=== PATIENT | female | born 1970 | race Caucasian/White ===

== ENCOUNTER 2018-08-29 01:13 | Emergency (ER) | payer OTHER ==
--- NOTE | 2018-08-29 01:12 | EDPHY ---
H & P Stated Complaint: LEFT SIDE CRAMPING PAIN 3 DAYS Time Seen by Provider: 08/29/18 01:46 [facility] HPI/ROS: HPI CHIEF COMPLAINT: Left-sided musculoskeletal back pain. No trauma. HISTORY OF PRESENT ILLNESS: This is a very pleasant 48-year-old female, she has a history of thyroid disease, recent large amount of weight gain, obesity, presents emergency room with 2-3 days of left-sided posterior back pain. Is focally tender in 1 area. It is worse when she moves her left arm. She denies any pleuritic pain or pain in her chest. She does states she has some shortness of breath. No hemoptysis no pleuritic pain. Additionally the patient reports the when she moves her left arm or you press in this focal area gives her exquisite pain. She is unsure of any injury. Of note upon arrival to the emergency room I did examine her left posterior back and she is questionably tender in 1 focal area she feels like it is a muscle injury. Past Medical History: Denies medical history except for thyroid disease, recent weight gain. Past Surgical History: No recent surgery Social History: Denies drugs alcohol tobacco. Family History: Noncontributory ROS REVIEW OF SYSTEMS: 10 Systems were reviewed and negative with the exception of the elements mentioned in the history of present illness. Exam Constitutional nontoxic no acute distress, triage nursing summary reviewed, vital signs reviewed, awake/alert. Eyes normal conjunctivae and sclera, EOMI, PERRLA. HENT normal inspection, atraumatic, moist mucus membranes, no epistaxis, neck supple/ no meningismus, no raccoon eyes. Respiratory clear to auscultation bilaterally, normal breath sounds, no respiratory distress, no wheezing. Cardiovascular l left lateral posterior back exquisite tenderness in 1 focal area, I can't palpate a area possible muscle spasm, is inferior to her left scapula, rate normal, regular rhythm, no murmur, no edema, distal pulses normal. Gastrointestinal soft, non-tender, no rebound, no guarding, normal bowel sounds, no distension, no pulsatile mass. Genitourinary no CVA tenderness. Musculoskeletal no midline vertebral tenderness, full range of motion, no calf swelling, no tenderness of extremities, no meningismus, good pulses, neurovascularly intact. Skin pink, warm, & dry, no rash, skin atraumatic. Neurologic awake, alert and oriented x 3, AAOx3, moves all 4 extremities equally, motor intact, sensory intact, CN II-XII intact, normal cerebellar, normal vision, normal speech. Psychiatric normal mood/affect. Heme/Lymph/Immune no lymphadenopathy. Differential Diagnosis: Includes but is not limited to in a particular order muscle spasm, musculoskeletal strain, rib fracture, tumor, mass, pneumothorax, pneumonia, PE Medical Decision Making: Plan for this patient IV establishment, blood work, EKG, troponin, chest x-ray, CT angiogram chest, IV Dilaudid for pain control and re-evaluate. Re-evaluation: EKG interpretation by me on record in [employer] system. Impression time of EKG 2:33 a.m., sinus rhythm rate of 94, no signs of acute ischemia. CT angiogram chest: Shows no evidence of PE. Additionally there is no evidence of posterior left back mass or rib fractures or soft tissue mass. Called to me by Dr. De Oliveira. Blood work reviewed. Re-evaluation 3:49 a.m. Patient resting comfortably. Pain is improved after IV Dilaudid however not completely gone. She has pain to her left back inferior scapula. Focally tender 1 area. Appears to be muscle spasm. CT scan did not reveal mass. She received IV Dilaudid 1 mg which improved her pain. Re-evaluation she received Toradol IV, as well as some Valium for muscle spasm re-evaluate. 0543: I re-evaluated the patient she is resting comfortably feels much better. Patient has no chest pain or shortness of breath no pleuritic pain. The pain is located left posterior back inferior scapula. Is musculoskeletal nature. Reproducible on exam her pain is much improved after IV Dilaudid IV Toradol and IV fluids. CT angiogram of the chest shows no evidence of mass. I do recommend she follows up with primary care doctor. Additionally recommend she follows up with Orthopedics for possible MRI of her shoulder and slightly below. She may have had a muscle tear. No arm weakness on exam. Return precautions discussed. Source: Patient - Personal History LMP (Females 10-55): 22-28 Days Ago Current Tetanus/Diphtheria Vaccine: Yes Current Tetanus Diphtheria and Acellular Pertussis (TDAP): Yes - Medical/Surgical History Hx Asthma: No Hx Chronic Respiratory Disease: No Hx Diabetes: No Hx Cardiac Disease: No Hx Renal Disease: No Hx Cirrhosis: No Hx Alcoholism: No Hx HIV/AIDS: No Hx Splenectomy or Spleen Trauma: No Other PMH: HYPOTHYROID, DEPRESSION, GERD. - Social History Smoking Status: Never smoked Constitutional: Initial Vital Signs Temperature (C) 36.7 C 08/29/18 01:48 MDT Heart Rate 108 H 08/29/18 01:48 MDT Respiratory Rate 18 08/29/18 01:48 MDT Blood Pressure 167/123 H 08/29/18 01:48 MDT O2 Sat (%) 97 08/29/18 01:48 MDT O2 Delivery Mode Room Air O2 (L/minute) 2 Allergies/Adverse Reactions: penicillin G Allergy (Verified 08/29/18 01:51 MDT) Home Medications: Medication Instructions Recorded Hydrochlorothiazide [HCTZ (*)] 25 mg PO DAILY 08/29/18 Hydrocodone/APAP 5/325 [[place] 1 - 2 tab PO Q4H PRN #10 tab 08/29/18 5/325] Ibuprofen [Motrin (*)] 800 mg PO Q6-8PRN #10 tab 08/29/18 Levothyroxine Sodium 50 mcg PO 08/29/18 Medical Decision Making - Data Points Laboratory Results: Laboratory Results 08/29/18 01:08 [facility] 08/29/18 01:08 [facility] 08/29/18 08/29/18 08/29/18 02:50 01:31 [facility] 01:08 [facility] WBC RBC Hgb Hct MCV MCH MCHC RDW Plt Count MPV Neut % (Auto) Lymph % (Auto) [place] % (Auto) Eos % (Auto) Baso % (Auto) Nucleat RBC Rel Count Absolute Neuts (auto) Absolute Lymphs (auto) Absolute Monos (auto) Absolute Eos (auto) Absolute Basos (auto) Absolute Nucleated RBC Immature Gran % Immature Gran # Sodium Potassium Chloride Carbon Dioxide Anion Gap BUN Creatinine Estimated GFR Glucose Calcium Magnesium Total Bilirubin Conjugated Bilirubin Unconjugated Bilirubin AST ALT Alkaline Phosphatase POC Troponin I 0.00 ng/mL ng/mL (0.00-0.08) Total Protein Albumin Lipase TSH Beta HCG, Qual NEGATIVE Urine Color YELLOW Urine Appearance CLEAR Urine pH 7.0 (5.0-7.5) Ur Specific [place] > 1.035 H (1.002-1.030) Urine Protein NEGATIVE (NEGATIVE) Urine Ketones NEGATIVE (NEGATIVE) Urine Blood NEGATIVE (NEGATIVE) Urine Nitrate NEGATIVE (NEGATIVE) Urine Bilirubin NEGATIVE (NEGATIVE) Urine Urobilinogen NEGATIVE EU EU (0.2-1.0) Ur Leukocyte Esterase NEGATIVE (NEGATIVE) Urine Glucose NEGATIVE (NEGATIVE) 08/29/18 08/29/18 01:08 MST 01:08 MST WBC 9.50 10^3/uL 10^3/uL (3.80-9.50) RBC 4.35 10^6/uL 10^6/uL (4.18-5.33) Hgb 13.8 g/dL g/dL (12.6-16.3) Hct 40.5 % % (38.0-47.0) MCV 93.1 fL fL (81.5-99.8) MCH 31.7 pg pg (27.9-34.1) MCHC 34.1 g/dL g/dL (32.4-36.7) RDW 12.7 % % (11.5-15.2) Plt Count 318 10^3/uL 10^3/uL (150-400) MPV 9.7 fL fL (8.7-11.7) Neut % (Auto) 55.8 % % (39.3-74.2) Lymph % (Auto) 32.6 % % (15.0-45.0) [place] % (Auto) 7.2 % % (4.5-13.0) Eos % (Auto) 3.5 % % (0.6-7.6) Baso % (Auto) 0.6 % % (0.3-1.7) Nucleat RBC Rel Count 0.0 % % (0.0-0.2) Absolute Neuts (auto) 5.30 10^3/uL 10^3/uL (1.70-6.50) Absolute Lymphs (auto) 3.10 10^3/uL H 10^3/uL (1.00-3.00) Absolute Monos (auto) 0.68 10^3/uL 10^3/uL (0.30-0.80) Absolute Eos (auto) 0.33 10^3/uL 10^3/uL (0.03-0.40) Absolute Basos (auto) 0.06 10^3/uL 10^3/uL (0.02-0.10) Absolute Nucleated RBC 0.00 10^3/uL 10^3/uL (0-0.01) Immature Gran % 0.3 % % (0.0-1.1) Immature Gran # 0.03 10^3/uL 10^3/uL (0.00-0.10) Sodium 139 mEq/L mEq/L (135-145) Potassium 4.2 mEq/L mEq/L (3.3-5.0) Chloride 101 mEq/L mEq/L (97-110) Carbon Dioxide 26 mEq/l mEq/l (22-31) Anion Gap 12 mEq/L mEq/L (6-14) BUN 19 mg/dL mg/dL (7-23) Creatinine 0.7 mg/dL mg/dL (0.6-1.0) Estimated GFR > 60 Glucose 128 mg/dL H mg/dL (70-100) Calcium 9.9 mg/dL mg/dL (8.5-10.4) Magnesium 1.9 mg/dL mg/dL (1.6-2.3) Total Bilirubin 0.3 mg/dL mg/dL (0.1-1.4) Conjugated Bilirubin 0.2 mg/dL mg/dL (0.0-0.5) Unconjugated Bilirubin 0.1 mg/dL mg/dL (0.0-1.1) AST 78 IU/L H IU/L (14-46) ALT 114 IU/L H IU/L (9-52) Alkaline Phosphatase 136 IU/L H IU/L (38-126) POC Troponin I Total Protein 7.7 g/dL g/dL (6.3-8.2) Albumin 4.1 g/dL g/dL (3.5-5.0) Lipase 79 IU/L IU/L (23-300) TSH 3.930 uIU/mL uIU/mL (0.465-4.680) Beta HCG, Qual Urine Color Urine Appearance Urine pH Ur Specific [place] Urine Protein Urine Ketones Urine Blood Urine Nitrate Urine Bilirubin Urine Urobilinogen Ur Leukocyte Esterase Urine Glucose Medications Given: Discontinued Medications Diazepam (Valium) 2.5 mg IVP EDNOW ONE Stop: 08/29/18 03:40 Last Admin: 08/29/18 03:50 Dose: 2.5 mg Hydromorphone HCl (Dilaudid) 1 mg IVP EDNOW ONE Stop: 08/29/18 01:20 MST Last Admin: 08/29/18 01:21 MST Dose: 1 mg Sodium Chloride (Ns) 1,000 mls @ 0 mls/hr IV EDNOW ONE; Wide Open PRN Reason: Protocol Stop: 08/29/18 01:18 MST Last Admin: 08/29/18 01:21 MST Dose: 1,000 mls Ketorolac Tromethamine (Toradol) 30 mg IVP EDNOW ONE Stop: 08/29/18 03:40 Last Admin: 08/29/18 03:50 Dose: 30 mg Point of Care Test Results: Chemistry 08/29/18 01:31 MST POC Troponin I 0.00 ng/mL ng/mL (0.00-0.08) Departure - Departure Disposition: Home, Routine, Self-Care Clinical Impression: Muscle spasm Back pain Qualifiers: Back pain location: thoracic back pain Chronicity: acute Back pain laterality: left Qualified Code(s): M54.6 - Pain in thoracic spine Condition: Good Instructions: Muscle Spasm (ED), Back Pain (ED) Additional Instructions: 1. Recommend warm compresses 2. Anti-inflammatory pain medicine 3. [place] for severe pain 4. Follow up with primary care doctor 5. Additionally her liver enzymes were slightly elevated please follow up with primary care doctor about this. Referrals: Patient,NotPresent [Unknown] - As per Instructions Prescriptions: Hydrocodone/APAP 5/325 [[place] 5/325] 1 - 2 tab PO Q4H PRN #10 tab PRN Reason: Pain, Moderate Ibuprofen [Motrin (*)] 800 mg PO Q6-8PRN #10 tab
[2018-08-29] MEDS ORDERED: NS 1,000 ML IV ONE (01:17)
[2018-08-29] MEDS ORDERED: HYDROmorphONE/DILAUDID 1 MG/ML INJ ONE (01:19)
[2018-08-29] MEDS ORDERED: HYDROmorphONE/DILAUDID 2 MG/ML INJ IVP ONE ×2 (01:19→05:42)
[2018-08-29 01:22] LABS: PLATELET COUNT 318 10^3/uL (150-400)
[2018-08-29] MEDS ORDERED: IOPAMIDOL (ISOVUE 370) 100 ML BTL IV ONE (01:25)
[2018-08-29] MEDS ORDERED: DIAZEPAM 5 MG/ML 1 ML SYR IVP ONE (03:39)
[2018-08-29] MEDS ORDERED: KETOROLAC 30 MG/1 ML SDV IVP ONE (03:39)
[2018-08-29] MEDS ORDERED: HYDROCOD/APAP 5/325 PREPACK#6 BTL TAKEHOME ONE (06:09)
[2018-08-29 06:29] VITALS: BP 138/74
--- NOTE | 2018-08-31 05:48 | CPEKG ---
Test Reason : OPEN Blood Pressure : / mmHG Vent. Rate : 094 BPM Atrial Rate : 094 BPM P-R Int : 146 ms QRS Dur : 084 ms QT Int : 353 ms P-R-T Axes : 062 031 031 degrees QTc Int : 442 ms Sinus rhythm Left atrial enlargement Low voltage, precordial leads Confirmed by Sandip Sharma ([id number]) on 08/31/2018 5:47:37 AM Referred By: Confirmed By:Sandip Sharma
== END 2018-08-29 06:29 | disposition home or self-care (01) ==
DX: M62.830 Muscle spasm of back (principal)
CPT/HCPCS: 84484-PO; 96374; J1170; J1885; J3360; Q9967

== ENCOUNTER 2019-02-21 15:36 | Inpatient (IN) | payer BC ==
[2019-02-21] MEDS ORDERED: OLANZapine 5 MG TAB PO ONE (16:18)
--- NOTE | 2019-02-21 16:29 | EDPHY ---
H & P Stated Complaint: psych eval Time Seen by Provider: 02/21/19 16:13 HPI/ROS: CHIEF COMPLAINT: Brought in by for psychiatric evaluation HISTORY OF PRESENT ILLNESS: The patient is brought in by her for psychiatric evaluation. The patient reportedly has been having paranoid delusional behavior increasing over the past several weeks. The patient herself is quite preoccupied with the fact that her is trying to cause her harm. She in turn is stating that he is the 1 who has mental health problems. The patient herself is tangential and disorganized. She had been under the care of a psychiatrist in the past remotely had been on Risperdal. She denies any history of depression or psychiatric diagnosis. She denies any suicidal homicidal ideation. She denies any drug abuse. The patient's states that she has been calming increasingly paranoid and delusional over the past month. The patient is currently unemployed. He reports that he is sleeping with his door locked at night because he is concerned about his 's erratic behavior. He reports that she had been on psychiatric medications which she discontinued in July. She does have a history of paranoid delusions in the past. REVIEW OF SYSTEMS: A comprehensive 10 point review of systems is otherwise negative aside from elements mentioned in the history of present illness. Source: Patient, Family Exam Limitations: No limitations - Personal History LMP (Females 10-55): 15-21 Days Ago Current Tetanus Diphtheria and Acellular Pertussis (TDAP): Unsure - Medical/Surgical History Hx Asthma: No Hx Chronic Respiratory Disease: No Hx Diabetes: No Hx Cardiac Disease: No Hx Renal Disease: No Hx Cirrhosis: No Hx Alcoholism: No Hx HIV/AIDS: No Hx Splenectomy or Spleen Trauma: No Other PMH: HYPOTHYROID, DEPRESSION, GERD. - Social History Smoking Status: Never smoked - Physical Exam Exam: General Appearance: Alert, no distress Eyes: Pupils equal and round no pallor or injection ENT, Mouth: Mucous membranes moist Respiratory: There are no retractions, lungs are clear to auscultation Cardiovascular: Regular rate and rhythm Gastrointestinal: Abdomen is soft and nontender, no masses, bowel sounds normal Neurological: A&O, normal motor function, normal sensory exam, normal cranial nerves Skin: Warm and dry, no rashes Musculoskeletal: Neck is supple nontender Extremities: symmetrical, full range of motion Psychiatric: Tangential, paranoid, delusional, cooperative, denies suicidal or homicidal ideation. Does endorse symptoms of persecution. Constitutional: Initial Vital Signs Temperature (C) 36.4 C 02/21/19 15:52 Heart Rate 122 H 02/21/19 15:52 Respiratory Rate 18 02/21/19 15:52 Blood Pressure 195/129 H 02/21/19 15:52 O2 Sat (%) 97 02/21/19 15:52 O2 Delivery Mode Room Air Allergies/Adverse Reactions: penicillin G Allergy (Verified 08/29/18 01:51 MDT) Home Medications: Medication Instructions Recorded Hydrochlorothiazide 0 mg PO DAILY 02/21/19 [Hydrochlorothiazide] Omeprazole 20 mg PO DAILY PRN 02/21/19 Medical Decision Making ED Course/Re-evaluation: The patient presents to the ED with increasing paranoid delusions in the setting of being off a psychiatric medications since July of last year. The patient has no signs of trauma. I find no abnormalities to her neurologic examination aside from her psychiatric disposition. Screening psychiatric laboratory studies have been sent. The patient has been placed on a [facility] detainer. The patient did consent to take 10 mg of Zyprexa orally. The patient was seen and evaluated by Mental Health. She has been placed on a 72 hr hold for grave disability. The case was discussed with Dr. Mike Fernandez who was agreed to admit the patient to the inpatient unit here at [facility]. I have filled out the EMTALA transfer form at 8:00 p.m. Differential Diagnosis: Differential diagnosis considered includes psychosis, depression, bipolar mood disorder - Data Points Laboratory Results: Laboratory Results 02/21/19 16:54 02/21/19 16:54 02/21/19 02/21/19 02/21/19 17:20 16:54 16:54 WBC RBC Hgb Hct MCV MCH MCHC RDW Plt Count MPV Neut % (Auto) Lymph % (Auto) [place] % (Auto) Eos % (Auto) Baso % (Auto) Nucleat RBC Rel Count Absolute Neuts (auto) Absolute Lymphs (auto) Absolute Monos (auto) Absolute Eos (auto) Absolute Basos (auto) Absolute Nucleated RBC Immature Gran % Immature Gran # Sodium 138 mEq/L mEq/L (135-145) Potassium 3.9 mEq/L mEq/L (3.5-5.2) Chloride 103 mEq/L mEq/L (97-110) Carbon Dioxide 23 mEq/l mEq/l (22-31) Anion Gap 12 mEq/L mEq/L (6-14) BUN 15 mg/dL mg/dL (7-23) Creatinine 0.7 mg/dL mg/dL (0.6-1.0) Estimated GFR > 60 Glucose 95 mg/dL mg/dL (70-100) Calcium 10.0 mg/dL mg/dL (8.5-10.4) TSH 4.160 uIU/mL uIU/mL (0.465-4.680) Beta HCG, Qual NEGATIVE Urine Opiates Screen NEGATIVE (NEGATIVE) Urine Barbiturates NEGATIVE (NEGATIVE) Ur Phencyclidine Scrn NEGATIVE (NEGATIVE) Ur Amphetamine Screen NEGATIVE (NEGATIVE) U Benzodiazepines Scrn NEGATIVE (NEGATIVE) Urine Cocaine Screen NEGATIVE (NEGATIVE) U Marijuana (THC) Screen NEGATIVE (NEGATIVE) Ethyl Alcohol < 10 mg/dL mg/dL (0-10) 02/21/19 16:54 WBC 10.61 10^3/uL H 10^3/uL (3.80-9.50) RBC 4.64 10^6/uL 10^6/uL (4.18-5.33) Hgb 14.4 g/dL g/dL (12.6-16.3) Hct 43.2 % % (38.0-47.0) MCV 93.1 fL fL (81.5-99.8) MCH 31.0 pg pg (27.9-34.1) MCHC 33.3 g/dL g/dL (32.4-36.7) RDW 13.2 % % (11.5-15.2) Plt Count 322 10^3/uL 10^3/uL (150-400) MPV 9.4 fL fL (8.7-11.7) Neut % (Auto) 73.5 % % (39.3-74.2) Lymph % (Auto) 17.2 % % (15.0-45.0) [place] % (Auto) 6.8 % % (4.5-13.0) Eos % (Auto) 1.4 % % (0.6-7.6) Baso % (Auto) 0.7 % % (0.3-1.7) Nucleat RBC Rel Count 0.0 % % (0.0-0.2) Absolute Neuts (auto) 7.80 10^3/uL H 10^3/uL (1.70-6.50) Absolute Lymphs (auto) 1.83 10^3/uL 10^3/uL (1.00-3.00) Absolute Monos (auto) 0.72 10^3/uL 10^3/uL (0.30-0.80) Absolute Eos (auto) 0.15 10^3/uL 10^3/uL (0.03-0.40) Absolute Basos (auto) 0.07 10^3/uL 10^3/uL (0.02-0.10) Absolute Nucleated RBC 0.00 10^3/uL 10^3/uL (0-0.01) Immature Gran % 0.4 % % (0.0-1.1) Immature Gran # 0.04 10^3/uL 10^3/uL (0.00-0.10) Sodium Potassium Chloride Carbon Dioxide Anion Gap BUN Creatinine Estimated GFR Glucose Calcium TSH Beta HCG, Qual Urine Opiates Screen Urine Barbiturates Ur Phencyclidine Scrn Ur Amphetamine Screen U Benzodiazepines Scrn Urine Cocaine Screen U Marijuana (THC) Screen Ethyl Alcohol Medications Given: Discontinued Medications Olanzapine (Olanzapine) 5 mg PO ONCE ONE Stop: 02/21/19 16:19 Last Admin: 02/21/19 16:46 Dose: Not Given Departure - Departure Disposition: [facility] IP Clinical Impression: Psychosis Qualifiers: Psychosis type: delusional disorder Qualified Code(s): F22 - Delusional disorders Condition: Fair Referrals: ROSALINDA VELASQUEZ [Primary Care Provider] - As per Instructions
[2019-02-21 17:08] LABS: PLATELET COUNT 322 10^3/uL (150-400)
--- NOTE | 2019-02-21 20:47 | ASMTTLCEVL ---
TLC Evaluation - Basic Information Evaluation Start Date and 02/21/2019 05:15 PM Time Hospital Status Answers: M1 Hold 72-hr M1 Hold Start Date 02/21/2019 07:01 PM and Time Patient statement Notes: " My brought me here." Narrative Notes: Pt is a 49 year old female who was brought to [facility] by her at the recomendation of her psychiatrist Dr. Akin Brown. Pt has had increased paranoid behavior. Per pt's , pt believes her house is under surveillance and that she is being followed. 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 Pt believes her has ordered the government to put surveillance on her.Pt recently went on a trip tp [place] to visit a friend and while she was there, she believed her hotel room was bugged and believed she uncovered a sex trafficking ring. More recently, pt has been posting bizarre things on facebook that made her friends concerned. Pt has been posting stuff about children killing parents. These postings prompted her mother to contact police who showed up at their house last week. HOC stated pt sits on the couch for "24 hours." Pt states she believes her brought her to the hospital because she has asked him to go to therapy and stated, " His behaviors are creepy." Pt did talk about her vacation to [place] and stated, " " I stayed at this twisted, creepy hotel, the [facility]. It had peep holes. I went out for a few hours and when I came back, people had gone through my stuff, my face book went crazy." Pt appeared tangential, grandiose with rambling speech. Pt was vague about her symptoms. Pt denied SI/AH/VH. Diagnosis History Notes: Pt stated she was diagnosed with a "nervous breakdown." Prior suicide attempts Notes: Pt denied any SA. Prior hospitalizations Notes: Pt stated she was hospitalized 10 years ago and stated, " Yes right here in [place]. I had a anziety. My sister called the ambulance. Whenever I had anxiety, she would call the ambulance but she from drugs." Treatment Responses Notes: Unknown History of violence Notes: Pt denied any HI of violence. Per pt, he has been locking his door at night because he is afraid. HOC states pt has never threatned him but has become more irritable and he just doesn't feel comfortable. Therapist: None Psychiatrist: Akin Brown MD Medications (name, dosage, route, freq uency) Notes: Pt states she has been off her medications since July. Pt did not say what her medications were. Allergies/Reaction Notes: Penicllin Sleep Notes: Wnl Appetite Notes: Pt reports she has gained weight. Medical/Surgical history Notes: Pt has a hx of hypertension and per HOC, she is supposed to be taking medication for her thyroid. Substance use history (frequency, intensity, his tory, duration) Notes: Pt denied any drug use and stated she has approx 2 drinks a week. Pt 's utox was negative for all substances and bal was, .0 Family composition Notes: Pt stated her mother lives in [place] and that they don't get along very well and she stated, " I talk to her bu she is an alcoholic but she called the library information technician and they were at my house last week and I told them the same thing, that I was in [place]." Need for family Answers: No participation in patient's care Family psychiatric/substance abuse history Notes: Pt's mother is an alcoholic and her sister was addicted to prescription pills and alcohol. Pt has a half sister who has bipolar disorder. Developmental history Notes: Pt did not provide a lot of information about her childhood and stated, " When I had a nervous break down, my brain shut down and couldn't handle stuff." Pt did deny any childhood concussions. Abuse concerns Answers: None Marital status/children Notes: Pt has been for 2.5 years.No children. Living situation Notes: Pt lives in [place] with her . Sexual history/orientation Notes: Pt identifies as heterosexual. Peer support/family strengths Notes: Pt stated she has a good group of friends. Education level/history Notes: Pt stated she has a MA degree in medical anthropology. Work history Notes: Pt stated, " I worked at several job that were not safe. I worked with people that were dangerous." Pt stated she worked at the [place] [employer]. Pt stated she believed the people were dangerous because one of the guys she worked with told her he wore, " bullet proof vests and spoke about food." Pt stated she is currently looking for a job. Notes: None Legal Notes: Pt denied any legal problems. Yazidism/Spiritual Notes: Noen that would intefere with tx. Leisure Notes: None Collateral Notes: Pt enjoys skiing, reading and walking. Patient's strengths Answers: Intelligent (Please select at least TWO strengths): Supportive Family [facility] Evaluation - Mental Status Exam Appearance: Answers: Clean Eye Contact: Answers: Absent Mood: Answers: Elevated Affect: Answers: Suspicious Behavior: Answers: Cooperative Talkative Speech: Answers: Relevant Irrelevant Pressured Rambling Thought Process: Answers: Paranoid Tangential Insight: Answers: Poor Judgement: Answers: Fair Manic Signs/Symptoms Answers: Grandiosity Hallucinations: Answers: None Delusions: Answers: Paranoid Ideation Persecution Pt reported to have Answers: No suicidal/self-injuring ideation/behavior? Pt reported to be making Answers: No suicidal/self-injuring threats? Pt reported to have Answers: No aggression/assault ideation/behavior? Pt reported to be making Answers: No aggression/assault threats? Pt exhibits inability to Answers: Yes care for self/grave disability? Ideation/behavior is Answers: No chronic? Patient has a specific Answers: No plan? Pt has access to means to Answers: No execute the plan? Ideation involves Answers: No serious/lethal intent? History of Answers: No suicidal/self-injuring ideation, behavior, or threats? History of Answers: No aggressive/assaultive ideation, behavior, or threats? History of serious Answers: No physical harm to self/others while in treatment setting? [facility] Evaluation - Suicide/Homicide Risk Suicide Risk Factors: Answers: None Homicide/violence risk Answers: Paranoid Ideation factors: Current Suicidal Answers: No Ideation? Current Suicidal Ideation Answers: No in the Past 48 Hours? Current Suicidal Ideation Answers: No in the Past Month? Suicide Internal Answers: Trever with Stress Protective Factors: Suicide External Answers: Social Support Protective Factors: Ranking of patient's Answers: Low suicidal risk: Ranking of patient's Answers: Low homicidal risk: [facility] Evaluation - Wrap-up BDI Total Score: Unable BSS Total Score: Unable AXIS I Diagnosis (include DSM-V and ICD-10 codes), must also be entered in [employer] which is the source of truth. Notes: Unspecified Schizophrenia Spectrum and Other Psychotic Disorder 298.9 (F29) In consultation with [facility] ED physician, Austin Galan MD and on-call psychiatrist, Mike Fernandez MD, both concurred that pt appears to meet 27-65 criteria requiring psychiatric hospitalization as pt appears to be at risk of harm to gravely disabled due to a mental illness condition. Pt declined to have this aligner typewriter read her the Patient Rights and Responsibilities Statement. On 02/21/19 at 19:30. The original placed on chart, and pt was given photocopy of Rights. Pt signed the Patient Rights. Pt was given the 3N prohibited belongings list while in the ED. Date Signed: 02/21/2019 08:46 PM Electronically Signed By:Cheyenne Streeter
--- NOTE | 2019-02-21 20:48 | ASMTTCLDSP ---
TLC Discharge Disposition Disposition: Answers: Admit Disposition Notes: Notes: In consultation with [facility] ED physician, Austin Galan MD and on-call psychiatrist, Mike Fernandez MD, both concurred that pt appears to meet 27-65 criteria requiring psychiatric hospitalization as pt appears to be at risk of harm to gravely disabled due to a mental illness condition. Pt declined to have this writer producer read her the Patient Rights and Responsibilities Statement. On 02/21/19 at 19:30. The original placed on chart, and pt was given photocopy of Rights. Pt signed the Patient Rights. Pt was given the 3N prohibited belongings list while in the ED. For inpatient Mike Fernandez MD admission, the following psychiatrist agreed to accept patient for admission to Behavioral [facility] ([facility]): Date Signed: 02/21/2019 08:48 PM Electronically Signed By:Cheyenne Streeter
[2019-02-21] MEDS ORDERED: OLANZapine DISINTEGR 5 MG TAB PO PRN (20:52)
[2019-02-21] MEDS ORDERED: ACETAMINOPHEN 325 MG TAB PO PRN (20:52)
[2019-02-21] MEDS ORDERED: MAGNESIUM HYDROXIDE 30 ML UDCUP PO PRN (20:52)
[2019-02-21] MEDS ORDERED: LORazepam 0.5 MG TAB PO PRN (20:52)
[2019-02-21] MEDS ORDERED: MAG HYDROX/AL HYDROX/SIMETH 30 ML UDCUP PO PRN (20:52)
[2019-02-21] MEDS ORDERED: NICOTINE POLACRILEX 2 MG GUM B PRN (20:52)
[2019-02-21] MEDS ORDERED: PANTOPRAZOLE SODIUM 40 MG TAB PO PRN (21:00)
[2019-02-22] MEDS: HYDROCHLOROTHIAZIDE 25 MG TAB PO SCH (08:37)
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
--- NOTE | 2019-02-22 09:46 | PDMN ---
Medical Necessity Medical necessity: Pt meets inpt criteria per MD order and [facility], Anxiety Disorders, Adult: Inpatient Care. 49 y/o admitted w/R/O delusional disorder and generalized anxiety disorder, on M1 hold due to being gravely disabled requiring continued inpt psychiatric care as pt is high safety risk due to current psychosis/paranoid delusions.
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
--- NOTE | 2019-02-22 19:00 | GCON ---
[f rep st] CONSULTATION DATE OF CONSULTATION: 02/22/2019 REQUESTING PHYSICIAN: Anselmo Villafuerte, psychiatric nurse practitioner. REASON FOR CONSULTATION: Medical opinion regarding stability for inpatient psychiatric hospitalizati on. HISTORY OF PRESENT ILLNESS: Yasmeen is a 49-year-old female brought to the emergency room by her [facility] for psychiatric care. She has been having paranoid delusions. She thinks her is trying to harm her. She has had increased symptoms for the last months. Her has been sleeping with t he door locked. She was previously on some psychiatric medications, and has a previous history of par anoid delusions, but stopped all these medications in July. She blames her weight gain on a lot of these psychiatric medications she was given in the past, claiming they increased her prolactin level . She is very distressed regarding unexplained weight gain. She says over the last 1-1/2 years she has gone from 145 to 230 pounds without any change in her diet. She has seen 3 endocrinologists. Sayner' s disease and thyroid disease have been ruled out. She was prescribed a thyroid medication by an end ocrinologist, which caused tachycardia, and she has now discontinued it. Her only other physical com plaint is intermittent back pain. She did have a previous ER visit for this; workup was negative. S he is not currently having back pain. She follows her blood pressure closely at home and systolic bl ood pressures are typically around 130. PAST MEDICAL HISTORY: 1. Morbid obesity, BMI 40. 2. Anxiety. 3. Increased LFTs. 4. Paranoid delusions. MEDICATIONS: Please see computerized record for full detailed list. ALLERGIES: Penicillin. SOCIAL HISTORY: She used to drink more alcohol, but currently only drinking 2 alcoholic beverages pe r month. No smoking. She has a master's in medical anthropology, and used to work in [employer], but she is currently unemployed. She lives with her . REVIEW OF SYSTEMS: Complete review of systems obtained. Review of systems negative on constitutional , HEENT, GI, pulmonary, cardiovascular, , hematology, skin, muscle, endocrine, and psych, except fo r positives as in HPI. FAMILY HISTORY: Her father was a heavy smoker and of lung cancer. Her sister of alcoholis m and pain pills. Her mom is alive, but is an active alcoholic. PHYSICAL EXAMINATION: GENERAL: Well-developed, well-nourished female, in no acute distress. VITAL SIGNS: Temperature is 36.5, pulse 70, blood pressure 145/79, saturating 93% on room air. HEENT: No rmal conjunctivae. Pupils equal and react light. ENT with normal ears, nose. Hearing intact. Norm al teeth. Oropharynx moist. NECK: Trachea midline. No thyromegaly. CHEST: Normal respiratory ef fort. Lungs are clear to auscultation bilaterally. CARDIOVASCULAR: Regular rhythm. No murmur. No extremity edema. ABDOMEN: Soft, nontender. No hepatosplenomegaly. SKIN: Warm, dry, intact, witho ut rash. MUSCULOSKELETAL: No cyanosis or clubbing. Strength 5/5 upper and lower extremities. NEUR OLOGIC: Cranial nerves intact. Normal sensation to light touch. PSYCH: Is alert and oriented x3. Normal affect. Normal judgment. Normal memory. She is, however, upset regarding her current admiss ion, and easily upset when speaking about her weight gain. LABS: White count 10.6, hematocrit 43.2, platelets 322. Sodium 138, potassium 3.9, chloride 103, bic arb 23, BUN 15, creatinine 0.7, glucose 95. test negative. TSH is 4.1, LDH is 125. U tox i s negative. MEDICAL RECORD REVIEW: Previous ER visit for back pain. No imaging was done. She was noted to have some increased LFTs. She also previously had a CT angiogram of the chest that was negative for PE. LFTs were checked last August, AST 78, ALT 114. ASSESSMENT AND PLAN: 1. Paranoid delusions. Management per psychiatry. 2. Morbid obesity, BMI 40. She has had a complete Endocrinology workup many times in the past and n othing has been discovered. Her TSH here is normal. She is very emotional and frustrated regarding w eight gain. 3. Increased liver function tests. The patient requests that we recheck liver function tests during this hospitalization. I will add them onto the ER blood. I suspect she has underlying fatty liver. 4. Hyperlipidemia. She should follow up with her primary care. Thank you for this consultation. Please re-consult Internal Medicine if any further needs arise rosalba bullock this hospitalization. /[id number]/MODL
--- NOTE | 2019-02-23 07:51 | SOAPPROG ---
SOAP Progress Note Assessment/Plan: Assessment: Delusional disorder. No improvement noted. (see subjective/objective note). Patient is not safe to discharge at this time as patient continues to exhibit sign of psychosis. Patient requires continued inpatient care because of current psychosis, and requires inpatient level of care to stabilize in order to no longer be gravely disabled due to mental illness. Patient is refusing needed medication, and her support system has inability to manage functional impairment at lower level of care. Patient could benefit from continued inpatient hospitalization for crisis stabilization, safety, and medication evaluation. Plan: 1. No medication changes. Patient refusing psychotropic medications. 2. Review with patient informed consent and recommendations for psychotropic medication treatment listed below 3. Labs: no additional labs at this time 4. Therapy: continue milieu and group therapy 5. Further investigation including gathering information from patients relatives and review of past case records to inform treatment plan. 6. Safety/Wellness plan and follow-up outpatient appointments to be established prior to discharge. Next steps are for patient to meet with health and social care teacher to plan a safe discharge plan and establish outpatient services for ongoing treatment. 7. Confer with inpatient treatment team regarding treatment plan. 8. Psychosocial stressors addressed through medical case manager. 9. Legal status: M1 10. Consider discharge next week if patient is in stable condition, safe, and has a safe discharge plan. PSYCHOTROPIC MEDICATION TREATMENT INFORMED CONSENT and RECOMMENDATIONS: Review nature of condition, diagnosis, and prognosis. Review nature and purpose of psychotropic medication treatment. Review type of psychotropic medications being ordered. Review risk and benefits of psychotropic medication treatment. Review probable length of time patient will need to take medications. Review risk and benefits of not undergoing psychotropic medication treatment. Review alternative treatments to psychotropic medications. Review psychotropic medications contraindications, drug-drug interactions, side effects, and importance of reporting any side effects to a psychiatric provider or nurse during inpatient hospitalization, and upon discharge to patients psychiatric outpatient provider, primary care provider, or other health child care assistant. Review importance of asking a nurse, psychiatric provider, or primary care provider any questions or problems concerning the psychotropic medications. Verify patient understands the information that has been provided, and understands, accepts, and agrees to psychotropic medications. Review patients safety plan and importance of patient to report to staff while hospitalized if patient is ever a danger to self/others, or unable to care for self, and upon discharge, the importance for patient to contact [facility] or [facility], or go to the nearest emergency room, if patient is ever a danger to self/others, or unable to care for self. Recommend that upon discharge patient establish medication management treatment with a psychiatric provider, establishes routine therapy appointments, and follow-up with primary care provider. Verify patient understands and agrees to these recommendations. 02/23/19 07:49 Subjective: Following up with patient for evaluation of psychosis and safety. Patient reports, "I am doing fine. Just bored here. Nothing to do. My visited me yesterday. He is the one that needs help. I am fine." Objective: Vital Signs Temp Pulse Resp BP Pulse Ox 36.6 C 73 14 135/64 H 94 02/23/19 06:00 02/23/19 06:00 02/23/19 06:00 02/23/19 06:00 02/23/19 06:00 MSE: The patient is a well-nourished female looking stated chronological age. Attire is appropriate dress is casual. Grooming status is appropriate. Ambulation is independent. Gait is normal and coordinated. Posture is normal and relaxed. Eye contact is appropriate. Motor activity is appropriate with purposeful, organized, coordinated movements; with no involuntary movements. Attitude is cooperative. Patient appears attentive and relates well to this interviewer. Language production is spontaneous. R/R/V normal. Articulation is clear. Patient reports mood as okay with congruent affect. Patients thought process is illogical, tangential. Patient does not report suicidal/ homicidal thoughts, ideas, or plans. Patient denies auditory, visual hallucinations. Patient reports delusions. Patient does not appear to be attending to internal stimuli. Patients attention and concentration are poor. Patient is oriented to person, place, time. Patients insight is poor. Patients judgment is poor. - Time Spent With Patient Time Spent With Patient: 15 minutes, met with patient individually. - Pending Discharge Pending Discharge Within 24 Hours: No Pending Discharge Within 48 Hours: No ICD10 Worksheet Patient Problems: Problems Problem Status Onset Psychosis Acute
[2019-02-23] MEDS: HYDROCHLOROTHIAZIDE 25 MG TAB PO SCH ×2 (09:08→11:30)
--- NOTE | 2019-02-23 12:58 | ASMTBHDC ---
Notes Note: Notes: The patient anticipates discharging tomorrow, 02/24/19; her , Franco Winslow was notified. The patient described her mood as "I've been fine since I got here [laughter]."This marketing copywriter discussed collateral and confirmed a follow up appointment with Akin Brown MD. Akin Brown MD [id number] [place] [address] Next appointment with Akin Brown MD on March 02 @ 13:00. Date Signed: 02/23/2019 12:57 PM Electronically Signed By:Maggie Nelson
[2019-02-24 06:48] VITALS: BP 144/65
--- NOTE | 2019-02-24 07:50 | BDS ---
[f rep st] BEHAVIORAL HEALTH DISCHARGE SUMMARY REASON FOR ADMISSION: From the ED note dated 02/21/2019, the patient was brought to the emergency room by her . The patient reportedly has been having paranoid delusions, increasing over the past several weeks. The patient was admitted involuntarily and on an M1 hold due to being gravely disabled. The patient was admitted for safety, crisis stabilization, and medication management. ADMISSION DIAGNOSIS: Delusional disorder. ADMISSION PHYSICAL EXAM: Patient was seen on 02/22/2019 for history and physical consultation for medical clearance for inpatient psychiatric hospitalization and treatment. The patient was medically cleared for inpatient psychiatric hospitalization and treatment. For further details, please refer to consultation note document dated 02/22/2019. ADMISSION LABORATORY DATA: 1. CBC within normal limits except white blood cells were elevated at 10.61, absolute neutrophils were elevated at 7.80. 2. BMP within normal limits. 3. Hemoglobin A1c within normal limits at 5.6. 4. Liver function within normal limits except alkaline phosphatase was elevated at 174. 5. Lipid panel within normal limits except triglycerides were elevated at 154, cholesterol elevated at 208, LDL cholesterol calculated elevated at 125, VLDL cholesterol elevated at 31, non-HDL cholesterol elevated at 156. 6. TSH within normal limits at 4.160. 7. Beta HCG qualitative test negative. 8. Toxicology screen negative for all the substances that were screened and negative for ethyl alcohol. MAJOR PROCEDURES OR TESTS: None. HOSPITAL COURSE: The most prominent symptoms and behaviors while the patient was here were reports of moderate anxiety. Treatment modalities utilized were milieu and group therapy. Patient has improved considerably with no signs of psychiatric symptoms and no psychiatric symptoms expressed. Patient reports she has improved since admission, states to be in stable condition, feels safe to discharge, and she contracts for safety. Patients response to treatment was good. There were no adverse or unexpected results of treatment. The patient was safe throughout stay, active in treatment, engaged in groups, and was appropriate with staff. Patient met with treatment team prior to discharge to assess readiness to discharge and review discharge plan. The treatment team consensus is the patient in stable condition, has a safe discharge plan, and is ready to discharge today. CONDITION AT DISCHARGE: Patient is in stable condition and is no longer a danger to self or others, and is not gravely disabled due to mental illness. Patient is no longer in need of inpatient level of care, and can be safely and effectively treated within the community. The patients level of risk at time of discharge is low. MSE: The patient is casually dressed and with good hygiene , and looks stated age. Patient is sitting, posture is upright, and position is relaxed. Patient appears awake, alert, and responds appropriately and reasonably during interview. Patient is engaged, relates well to interviewer, and emotional facial expression is appropriate to situation and changes appropriately with topic. Patient is cooperative, makes comfortable eye contact , and movements are voluntary, deliberate, coordinated, and smooth and even with no inappropriate movements. Patient makes laryngeal sounds effortlessly and shares conversation appropriately; pace of conversation is appropriate, and stream of talking is fluent; articulation is clear and understandable; word choice is effortless and appropriate for education level; completes sentences, occasionally pausing to think; rate and volume are appropriate for interview and setting. Patient reports mood as euthymic. Patients affect is stable with full variable range, congruent with mood, and appropriate to speech and circumstances. Patient has fairly linear and fairly logical thinking, with no loose associations, tangential thought, thought blocking, or concrete thinking. Patient denies suicidal and homicidal ideation, and denies hallucinations. Patient reports delusions. Patient appears to be a reliable historian with sound judgement and good insight into current condition. Patient has no apparent dysfunction in recent or remote memory noted, and no evidence of gross cognitive dysfunction noted at any point during the interview. DISCHARGE DIAGNOSIS: Delusional disorder CURRENT MEDICATIONS: Hydrochlorothiazide 25 mg po QD. Prescription for 30 days is provided. Prescriptions are reviewed with patient at time of discharge to ensure accuracy and patient understanding. LEGAL COURSE: Patient was admitted on an M1 hold for involuntary inpatient psychiatric hospitalization and treatment. The patient discharged today independently and voluntarily. FOLLOWUP: enrollment coordinator reports the appropriate outpatient follow-up services have been established and outpatient appointments have been scheduled. The patient received written instructions with times and dates of outpatient follow-up appointments. ATTITUDE AT TIME OF DISCHARGE: The patients attitude was positive at time of discharge, and patient reports looking forward to discharging today. The patient reports she feels safe to discharge, is no longer a danger to herself or others, is in stable condition, and contracts for safety. PENDING LABORATORY DATA: There were no pending labs at time of discharge. ADVANCE DIRECTIVES: There were no advance directives on file, and patient was full code during this hospitalization. /[id number]/MODL MTDD
[2019-02-24] MEDS: HYDROCHLOROTHIAZIDE 25 MG TAB PO SCH (07:52)
== END 2019-02-24 08:20 | disposition home or self-care (01) | DRG 885 ==
LOC: BBEH 20:40
PROVIDERS: ADMIT Psychiatry & Neurology Psychiatry; ATTEND Registered Nurse
DX: F22 Delusional disorders (principal); E03.9 Hypothyroidism, unspecified; K21.9 Gastro-esophageal reflux disease without esophagitis; E66.01 Morbid (severe) obesity due to excess calories; Z68.41 Body mass index [BMI] 40.0-44.9, adult; F41.9 Anxiety disorder, unspecified; R94.5 Abnormal results of liver function studies
CPT/HCPCS: 80305; G0480